=== PATIENT | male | born 1965 | race Caucasian/White ===

== ENCOUNTER 2019-04-08 17:00 | Outpatient (RCR) | payer OTHER ==
[~2019-04-08 17:00] MED LIST: ATORVASTATIN PO; METFORMIN HCL1000 MG PO; NORCO 7.5-3251 EACH PO
== END 2019-04-09 ==
LOC: PT 17:00
PROVIDERS: ATTEND Neurological Surgery
DX: M48.061 Spinal stenosis, lumbar region without neurogenic claudication (principal); M54.5 Low back pain; M62.81 Muscle weakness (generalized); M53.86 Other specified dorsopathies, lumbar region

== ENCOUNTER 2019-05-07 09:00 | Outpatient (RCR) | payer OTHER | END 2019-05-09 | LOC: PT 09:00 | PROVIDERS: ATTEND Neurological Surgery | DX: M48.061 Spinal stenosis, lumbar region without neurogenic claudication (principal); M54.5 Low back pain; M62.81 Muscle weakness (generalized); M53.86 Other specified dorsopathies, lumbar region ==

== ENCOUNTER 2019-05-14 08:59 | Outpatient (RCR) | payer OTHER | END 2019-06-09 | LOC: PT 08:59 | PROVIDERS: ATTEND Neurological Surgery | DX: M48.061 Spinal stenosis, lumbar region without neurogenic claudication (principal); M54.5 Low back pain; M62.81 Muscle weakness (generalized); M53.86 Other specified dorsopathies, lumbar region ==

== ENCOUNTER 2019-09-07 17:00 | Outpatient (RCR) | payer OTHER | END 2019-09-09 | LOC: PT 17:00 | PROVIDERS: ATTEND Internal Medicine | DX: M54.6 Pain in thoracic spine (principal); M62.81 Muscle weakness (generalized) ==

== ENCOUNTER 2019-09-14 17:17 | Outpatient (RCR) | payer OTHER | END 2019-10-09 | LOC: PT 17:17 | PROVIDERS: ATTEND Internal Medicine | DX: M54.6 Pain in thoracic spine (principal); M62.81 Muscle weakness (generalized) ==

== ENCOUNTER 2020-08-08 06:59 | Outpatient (RCR) | payer OTHER | END 2020-08-09 | LOC: PT 06:59 | PROVIDERS: ATTEND Chiropractor Rehabilitation | DX: M54.5 Low back pain (principal); M54.08 Panniculitis affecting regions of neck and back, sacral and sacrococcygeal region; M62.830 Muscle spasm of back; M62.50 Muscle wasting and atrophy, not elsewhere classified, unspecified site; M99.06 Segmental and somatic dysfunction of lower extremity ==

== ENCOUNTER 2020-08-15 07:00 | Outpatient (RCR) | payer OTHER | END 2020-09-09 | LOC: PT 07:00 | PROVIDERS: ATTEND Internal Medicine | DX: M54.08 Panniculitis affecting regions of neck and back, sacral and sacrococcygeal region (principal); M62.830 Muscle spasm of back; M62.50 Muscle wasting and atrophy, not elsewhere classified, unspecified site; M99.06 Segmental and somatic dysfunction of lower extremity ==

== ENCOUNTER 2021-03-05 16:09 | Outpatient (RCR) | payer BC | END 2021-03-09 | LOC: PT 16:09 | PROVIDERS: ATTEND Internal Medicine | DX: M54.5 Low back pain (principal) ==

== ENCOUNTER 2021-04-02 17:00 | Outpatient (RCR) | payer BC | END 2021-04-09 | LOC: PT 17:00 | PROVIDERS: ATTEND Internal Medicine | DX: M54.5 Low back pain (principal); M62.81 Muscle weakness (generalized); M53.86 Other specified dorsopathies, lumbar region | CPT/HCPCS: 97139 ==

== ENCOUNTER 2022-02-04 17:00 | Outpatient (RCR) | payer BC | END 2022-02-07 | LOC: PT 17:00 | PROVIDERS: ATTEND Internal Medicine | DX: M54.50 Low back pain, unspecified (principal); G89.29 Other chronic pain ==

== ENCOUNTER 2022-02-15 15:00 | Outpatient (RCR) | payer BC | END 2022-03-09 | LOC: PT 15:00 | PROVIDERS: ATTEND Internal Medicine | DX: M54.50 Low back pain, unspecified (principal); G89.29 Other chronic pain | CPT/HCPCS: 97139 ==